=== PATIENT | male | born 1960 | race Two or more races ===

== ENCOUNTER 2022-06-19 16:30 | Outpatient (CLI) | payer OTHER | END 2022-06-19 16:44 | disposition home or self-care (01) | LOC: RAD 16:30 | PROVIDERS: ATTEND Orthopaedic Surgery | DX: S92.012A Displaced fracture of body of left calcaneus, initial encounter for closed fracture (principal) ==

== ENCOUNTER 2022-08-01 13:35 | Outpatient (CLI) | payer OTHER | END 2022-08-01 13:49 | disposition home or self-care (01) | LOC: RAD 13:35 | PROVIDERS: ATTEND Orthopaedic Surgery | DX: M25.552 Pain in left hip (principal); M25.562 Pain in left knee ==